=== PATIENT | female | born 1995 | race Caucasian/White ===

== ENCOUNTER 2020-11-11 16:43 | Day surgery (SDC) ==
[2020-11-11] MEDS ORDERED: hydrALAZINE 20 MG/ML VIAL SLOW IVP PRN ×2 (17:22→20:50)
[2020-11-11 19:27] LABS: Bacteria/HPF 4+ HPF (None Seen); Bilirubin Negative (Negative); Blood, Urine Trace (Negative); Clarity Turbid (Clear); Glucose, Urine (Dipstick) Normal (Negative); Ketone, Urine Negative (Negative); Leukocyte 500 Leu/uL (Negative); Nitrite Negative (Negative); Protein, Urine (Dipstick) Negative (Neg-Trace); Renal Epithelial 0-3 HPF (None Seen); Specific Gravity, Urine 1.012 (1.002-1.036); Squamous Epithelial 0-3 HPF (0-3); Urobilinogen Normal mg/dL (Less than 2); WBC/HPF Greater than 50 HPF (0-3)
[2020-11-11 19:36] LABS: Amphetamine Not Detected (NotDetected); Benzodiazepine Screen Not Detected (NotDetected); Cocaine Metabolite Screen Not Detected (NotDetected); Medtox Reader # READER 4; Methadone Not Detected (NotDetected); Methamphetamine Not Detected (NotDetected); Opiate Screen Not Detected (NotDetected); Phencyclidine (PCP) Not Detected (NotDetected); THC/Cannabinoid Screen Not Detected (NotDetected); Tricyclic Screen Not Detected (NotDetected)
[2020-11-11 19:37] LABS: Barbiturates Screen Not Detected (NotDetected); Medtox Control Line Valid? VALID (VALID); Oxycodone Screen Not Detected (NotDetected)
[2020-11-11 19:40] LABS: Hemoglobin 12.7 g/dL (12.0-16.0); Mean Corpuscular HGB CONC 33.9 g/dL (32.0-36.0); Mean Corpuscular Hemoglobin 32.6 pg (27.0-31.0); Mean Corpuscular Volume 96.2 fL (78.0-98.0); Mean Platelet Volume 8.5 fL (7.4-10.4); Platelet Count 259 thou/uL (130-400); RBC Distribution Width 11.6 % (11.5-14.5); White Blood Cell (WBC) Count 17.9 thou/uL (4.8-10.8)
[2020-11-11 20:17] LABS: Syphilis Antibody Nonreactive (Nonreactive); Syphilis Antibody Index 0.08 S/CO (<1.00 Non-Reactive)
--- NOTE | 2020-11-11 20:43 | ULT ---
OB ULTRASOUND: 11/11/20 PROVIDED CLINICAL HISTORY: No care. FINDINGS: A single live intrauterine gestation documented in vertex presentation with heart rate of 128 b eats per minute documented. The placenta is anteriorly located without evidence for previa. Amniotic fluid appears adequate, measuring about 17.6. Cervical length is not assessed. Estimated gestational age based on today's examination is 31 weeks, 3 days. Estimated weight is 1726 +/- 255 grams. F etal anatomic survey demonstrates a normal appearance to the spine, heart, stomach, kidneys, bladder, three vessel umbilical cord, lateral ventricles, cerebellum/posterior fossa, extremities and spine. The cord insertion and nose and lips were not visualized. BIOMETRY: BPD 7.93 cm 31 weeks, 6 days Head circumference 28.7 cm 31 weeks, 3 days Abdominal circumference 26.9 cm 31 weeks, 0 days Femur length 6.1 cm 31 weeks, 3 days IMPRESSION: Single live intrauterine gestation as described above. POS: DOM
[2020-11-11 23:08] LABS: HBSAB Concentration Less than 8.00 mIU/mL; Hep B Surf AB Non-Reactive (NonReactive)
--- NOTE | 2020-11-12 00:34 | PRG ---
DATE OF SERVICE: 11/11/2020 PRIMARY OB: None. CHIEF COMPLAINT: Side pain. HISTORY OF PRESENT ILLNESS: The patient is a 25-year-old G2, P1 female with an intrauterine based on reported due date by LMP of 28 weeks and 2 days, presenting to Labor and Delivery with a day history of side pain that she woke up with this morning. The patient points to her right side and states she has some point tenderness on her side, just above her hip bone that is worse with activity and movement. The patient does admit that she has had no care up to this point. The patient denies fever. The patient does report some minor cough. Denies chest pain. She does report some shortness of breath with activity and movement. Reports occasional nausea with vomiting. Denies diarrhea or constipation. Denies any new rashes. Denies hip problems, knee problems, muscle weakness. Denies vaginal bleeding or leakage of fluid. Denies urinary urgency or frequency. PAST MEDICAL HISTORY: The patient has a history of recurrent urinary tract infections. Also anxiety, depression, bipolar disorder, anemia. PAST SURGICAL HISTORY: Negative. ALLERGIES: NO KNOWN DRUG ALLERGIES. PAST OBSTETRIC HISTORY: The patient reports that she had elevated blood pressures with her last at term prompting an induction of labor. SOCIAL HISTORY: The patient does report tobacco use, 4 to 5 cigarettes a day. Occasional marijuana use. Denies alcohol use. REVIEW OF SYSTEMS: Per HPI. PHYSICAL EXAMINATION: VITAL SIGNS: Blood pressure 118/80, respiratory rate of 18, heart rate of 83, temperature 97.6. GENERAL: The patient appears to be in no acute distress. She is alert, oriented, cooperative, and pleasant to interact with. HEAD: Normocephalic, atraumatic. LUNGS: Clear to auscultation bilaterally . HEART: Has a regular rate and rhythm. ABDOMEN: Gravid, soft, nontender. She does have some point tenderness just above the right superior anterior iliac crest that is reproducible. The patient has no CVA tenderness. She has no pelvic tenderness. heart tracing shows a fetus with a baseline in the 130s with moderate long-term variability, positive 15 x 15 accelerations. Tocometer showing no contraction pattern. EXTREMITIES: Nontender with minimal edema. : Deferred. LABORATORY DATA: White count 17.9, hemoglobin 12.7, hematocrit 37.5, and platelets of 259,000. Urine is turbid with negative ketones, negative nitrites, 500 leukocyte esterase, 7 to 10 red blood cells, greater than 50 white blood cells, 0 to 3 squamous cells, 4+ bacteria. Negative drug screen. Nonreactive syphilis IgG/IgM antibody. Nonreactive hepatitis B surface standard antibody. Blood type is B positive, antibody screen is negative. ultrasound shows a fetus with a normal anatomic scan, weighing 1726 g approximately and a gestational age of 31 weeks and 3 days. ASSESSMENT AND PLAN: The patient is a 25-year-old G2, P1 female with an intrauterine at 28 weeks and 2 days, presenting with musculoskeletal pain of and no care. Initial labs are significant for urinary tract infection. Lab results were shared with the patient and the patient was prescribed Keflex 500 mg 3 times a day for 5 days. Urine culture is pending. GC and chlamydia are pending. COVID test is pending and rubella is pending. The patient has been provided with information to contact the clinic where she can establish care without insurance and there they can attempt to see if she can qualify for any public assistance. Fetus has a category 1 tracing and reactive NST. 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 Job ID: [id number]
[2020-11-12 03:08] LABS: SARS-CoV-2 MS2 Positive; SARS-CoV-2 N Gene Negative; SARS-CoV-2 S Gene Negative; SARS-CoV-2 by NAA Not Detected (NotDetected); SARS-CoV-2 orf1ab Negative
[2020-11-13 21:21] LABS: Chlamydia by PCR Not Detected (NotDetected); GC by PCR Not Detected (NotDetected)
== END 2020-11-11 19:30 | disposition home health service (06) ==
LOC: L&D/OP 16:43
PROVIDERS: ATTEND Obstetrics & Gynecology
DX: O26.893 Other specified pregnancy related conditions, third trimester (principal); R10.9 Unspecified abdominal pain; O23.43 Unspecified infection of urinary tract in pregnancy, third trimester; O09.33 Supervision of pregnancy with insufficient antenatal care, third trimester; O99.333 Smoking (tobacco) complicating pregnancy, third trimester; F17.210 Nicotine dependence, cigarettes, uncomplicated; Z3A.28 28 weeks gestation of pregnancy; Z20.828 Contact with and (suspected) exposure to other viral communicable diseases
CPT/HCPCS: 36415; 76805; 80306; 81001; 85027; 86706; 86762; 86780; 86850; 86900; 86901; 87077; 87086; 87186; 87491; 87591; 87635; 99283; U0003

== ENCOUNTER 2020-12-17 17:01 | Day surgery (SDC) | payer MEDICAID, OTHER, SELFPAY ==
[2020-12-17] MEDS ORDERED: Betamet Acet/Betamet Na Ph 30 MG/5 ML VIAL ONE (17:23)
== END 2020-12-17 17:30 | disposition home or self-care (01) ==
LOC: L&D/OP 17:01
PROVIDERS: ATTEND Student in an Organized Health Care Education/Training Program
DX: Z29.8 Encounter for other specified prophylactic measures (principal); Z3A.00 Weeks of gestation of pregnancy not specified
CPT/HCPCS: J0702

== ENCOUNTER 2020-12-18 17:41 | Day surgery (SDC) | payer MEDICAID, OTHER, SELFPAY ==
[2020-12-18] MEDS ORDERED: Betamet Acet/Betamet Na Ph 30 MG/5 ML VIAL ONE (18:19)
[2020-12-18] MEDS ORDERED: Betamet Acet/Betamet Na Ph 30 MG/5 ML VIAL IM SCH (18:30)
--- NOTE | 2020-12-18 18:37 | PDOC.FPROB ---
FMR OB H&P: HPI - History of Present Illness Chief Complaint: Steroid IM Indentification: 25 y/o @ 36.5 wga based on gestational sono @ 31.5 wga not c/w LMP History of Present Illness: 25-year-old -0-0-1 at 36.5 weeks by 31.3 weeks gestational age sono NOT consistent with LMP presents for 2/2 steroid injection per recommendation of MFM to have dose yesterday and today with plans for medically indicated induction tomorrow 2/2 IUGR. She has no complaints. No VB/LOF/contractions, endorses good mvmt. No RIDER, CP/SOB, RUQ pain, swelling more than normal. She states that today at clinic she had pap smear, GBS swab, and was told that she had a UTI, however denied urinary symptoms at this time. Was sent abx to the pharmacy which she has not picked up yet. Primary Care Physician: ANETA Morton FMR OB H&P: Current - Care : 2 Para: 1 Gestational age: 36.3 wga based on 31.3 gestational age sono not consistent with LMP - OB Labs Blood type: B RH: positive Antibody Screen: negative HIV: negative RPR: negative HepBsAg: negative Gonorrhea: negative Chlamydia: negative GBS: unknown FMR OB H&P: History - Past Medical History PMH: -obesity -tobacco abuse -MJ abuse - OB History OB History: Preg #1: vaginal delivery; was induced for pre-E, unsure if this was pre-term or term - CAMPUS COORDINATOR History CAMPUS COORDINATOR History: -partner with hepatitis B or C, unsure - Surgical History Sx History: -none - Social History Social History: -smokes 5-10 cig/day -off and on MJ use -no ETOH use - Family History Family History: -mother: DM FMR OB H&P: Medications - Current Home Medications: Medication Instructions Recorded Confirmed Type Sulfamethoxazole/Trimethoprim 1 tab PO BID #14 tab 11/11/20 Rx [Bactrim DS] Allergies/Adverse Reactions: Allergies Allergy/AdvReac Type Severity Reaction Status Date / Time No Known Drug Allergies Allergy Verified 12/17/20 17:56 FMR OB H&P: ROS - Review of Systems General: denies: fever/chills, night sweats, fatigue ENT: denies: nasal congestion, rhinorrhea, sore throat Cardiovascular: denies: chest pain, palpitation Respiratory: denies: cough, congestion, shortness of breath Gastrointestinal: denies: abdominal pain, indigestion, bloating, cramping, diarrhea, constipation Genitourinary (Female): denies: incontinence, dysuria, hematuria, vaginal discharge, vaginal pain, vaginal bleeding, contractions, vaginal pressure Musculoskeletal: denies: pain, stiffness, tenderness Neurologic: denies: weakness Integumentary: denies: itching, rash FMR OB H&P: Vital Signs - Maternal Vital signs: BP: 127/78, Temp 98.4, HR 91, RR 16 - Heart Tones Baseline: 130 Variability: moderate Acceleration: present Deceleration: absent [place] contractions every: none seen FMR OB H&P: Physical Exam - Physical Exam General: NAD, awake, alert and oriented HEENT: normocephalic and atraumatic, MMM, conjunctiva clear, grossly normal hearing Neck: supple Heart: RRR, normal S1/S2, no murmurs/rubs/gallops General: CTAB, no respiratory distress, good air movement, no rales/rhonchi, no wheezing Abdomen: soft, gravid Musculoskeletal: normal gait and station, pulses present, FROM in all four extremities Neurological: no focal deficit Skin: no rash, good tugor, capillary refill <2 seconds, no jaundice Lymphatic: no unusual bruising or bleeding, no purpura, no petechia Psychiatric: intact recent and remote memory, good judgement and insight, normal mood and affect FMR OB H&P: A/P Discussion: Date/Time: 12/18/201833 Assessment/Plan discussed with Dr. Mann and Dr. Simeon ##steroid injection for pending mIOL 2/2 IUGR -as recommended by [facility] will get 2/2 celestone injection today plan for induction tomorrow -will review u/s dopplers in clinic charts -covid test ordered -20 min NST before d/c ##Gestational HTN -home bps diastolic > 90, pre-e labs ordered in clinic. -will review labs and monitor BPs while in house, VSS at this time, no pre-E sxs today ##Hx of pre-E -was induced last for this -not currently on ASA -MD aware ##Hx of Marijuana use during -no known use during this , neg UDS in previous encounter -admits to current tobacco use, see below ##Smoking -currently 1/2 ppd, encourage cessation Dispo: awaiting NST prior to d/c Addendum: Pt had reactive NST 20 min strip. 12mg Celestone IM given. 1g rocephin given for ppx UTI. Dispo home. Induction scheduled for tomorrow. Addendum - Attending - Attending Attestation Date/Time: 12/18/201810 I personally evaluated the patient and discussed the management with resident team I agree with the History, Examination, Assessment and Plan documented above with any addition or exceptions noted below. NST reactive. BMZ #2 given. Will give Rocephin for UTI treatment. Ok for d/c. Justin
[2020-12-18] MEDS ORDERED: hydrALAZINE 20 MG/ML VIAL SLOW IVP PRN (18:42)
[2020-12-18] MEDS ORDERED: cefTRIAXone\\ROCEPHIN 1 GM VIAL IM SCH (19:00)
[2020-12-18] MEDS ORDERED: Lidocaine 1% PF 5 ML VIAL FS SCH (19:00)
[2020-12-19 06:45] LABS: SARS-CoV-2 PCR by NAA Not Detected (NotDetected)
== END 2020-12-18 19:20 | disposition home or self-care (01) ==
LOC: L&D/OP 17:41
PROVIDERS: ATTEND Student in an Organized Health Care Education/Training Program
DX: O36.5930 Maternal care for other known or suspected poor fetal growth, third trimester, not applicable or unspecified (principal); O99.333 Smoking (tobacco) complicating pregnancy, third trimester; F17.210 Nicotine dependence, cigarettes, uncomplicated; O13.3 Gestational [pregnancy-induced] hypertension without significant proteinuria, third trimester; O99.213 Obesity complicating pregnancy, third trimester; E66.9 Obesity, unspecified; O23.43 Unspecified infection of urinary tract in pregnancy, third trimester; Z3A.36 36 weeks gestation of pregnancy; Z20.822 Contact with and (suspected) exposure to COVID-19
CPT/HCPCS: 87635; 96372; 99282; J0696; J0702; U0003; U0005

== ENCOUNTER 2020-12-19 18:00 | Inpatient (IN) | payer MEDICAID, SELFPAY ==
[~2020-12-19 18:00] MED LIST: Bupivacaine HCl 0.25%/Epi 0.0005/PF 10 ML VIAL FS ONE
[2020-12-19 20:56] VITALS: BMI 34.3
[2020-12-19] MEDS ORDERED: Lidocaine 1% (PF) 30 ML VIAL SC PRN (21:13)
[2020-12-19] MEDS ORDERED: Promethazine HCl 25 MG/ML VIAL IM PRN (21:13)
[2020-12-19] MEDS ORDERED: NS / Oxytocin 40 units/1000ml 1,000 ML IV PRN (21:13)
[2020-12-19] MEDS ORDERED: Ondansetron PF 4 MG/2 ML Vial IVP PRN (21:13)
[2020-12-19] MEDS ORDERED: hydrALAZINE 20 MG/ML VIAL SLOW IVP PRN (21:13)
--- NOTE | 2020-12-19 21:13 | PDOC.FPROB ---
FMR OB H&P: HPI - History of Present Illness Chief Complaint: mIOL for IUGR Indentification: 25 y/o @ 36.6 wga History of Present Illness: Pt presents today for mIOL for IUGR. States that today she is feeling well. Endorses good FM. No consistent contractions felt. No VB, VD, or LOF. No RIDER, CP/SOB, N/V. States that she is bothered by her GERD today. Is not currently on medication for this. No questions at this time. Primary Care Physician: ANETA Morton FMR OB H&P: Current - Care : 2 Para: 1 Gestational age: 36.6 wga Dating Criteria: gestational 31.5 wk sono - OB Labs Blood type: B RH: positive Antibody Screen: negative HIV: negative RPR: negative HepBsAg: negative Rubella: immune Gonorrhea: negative Chlamydia: negative Pap Smear: done 12/18/20 unsure of results GBS: unknown FMR OB H&P: History - Past Medical History PMH: -obesity -tobacco abuse -MJ abuse - OB History OB History: -gHTN, pre-E in previous Preg #1: vaginal delivery; was induced for pre-E - RAND BUTTER History RAND BUTTER History: -hx of partner with hepatitis B or C, unsure of which type - Surgical History Sx History: -none - Social History Social History: -smokes 5-10 cig/day currently, used to smoke 2PPD earlier during , been smoking since 15 y.o -off and on MJ use -denies ETOH use - Family History Family History: Mother: DM FOB sibling with sickle cell FMR OB H&P: Medications - Current Home Medications: Medication Instructions Recorded Confirmed Type Vitamin 1 tablet PO DAILY 12/19/20 12/19/20 History Allergies/Adverse Reactions: Allergies Allergy/AdvReac Type Severity Reaction Status Date / Time latex Allergy Verified 12/19/20 20:40 No Known Drug Allergies Allergy Verified 12/19/20 20:40 FMR OB H&P: ROS - Review of Systems General: denies: fever/chills, fatigue Eyes: denies: eye pain, vision changes, double vision ENT: denies: nasal congestion, rhinorrhea, ear pain, sore throat Cardiovascular: denies: chest pain, palpitation Respiratory: denies: cough, congestion Gastrointestinal: reports: nausea. denies: abdominal pain, indigestion, bloating, cramping, diarrhea, constipation Genitourinary (Female): denies: incontinence, dysuria, polyuria, vaginal discharge, vaginal pain, vaginal bleeding, contractions, vaginal pressure Musculoskeletal: denies: pain, tenderness, swelling Neurologic: denies: numbness, weakness, headache Integumentary: denies: itching, rash FMR OB H&P: Vital Signs - Maternal Vital signs: Vital Signs - First Documented Temp Pulse Resp BP Pulse Ox 97.7 F 98 18 131/84 99 12/19/20 20:32 12/19/20 20:32 12/19/20 20:32 12/19/20 20:32 12/19/20 20:32 - Heart Tones Baseline: 130 Variability: minimal Acceleration: present Deceleration: absent Category: category 2 [place] contractions every: no ctx seen FMR OB H&P: Physical Exam - Physical Exam General: NAD, awake, alert and oriented HEENT: normocephalic and atraumatic, MMM, grossly normal hearing Neck: supple Chest: non-tender to palpation Heart: RRR, normal S1/S2, no murmurs/rubs/gallops, pulses present General: CTAB, no respiratory distress, good air movement, no rales/rhonchi, no wheezing, no retractions Abdomen: soft, gravid, non-tender, bowel sound present Musculoskeletal: FROM in all four extremities Neurological: no focal deficit Skin: no rash, good tugor, capillary refill <2 seconds Lymphatic: no unusual bruising or bleeding, no purpura, no petechia Psychiatric: intact recent and remote memory, good judgement and insight, normal mood and affect - Pelvic Exam Vulva: normal hair distribution, no lesions, no discharge, no blood Cervix: no masses, no lesions SVE: Membranes: intact FMR OB H&P: A/P Disposition: ##mIOL /2 IUGR -s/p two steroid IM 12/17 and 12/18 -seen by MFM who stated that fetus was IUGR, recent hadlock 9% and also noted elevated dopplers, prompting recommendation for mIOL -3T labs so far wnl -GBS unknown, will emperically txt -SVE: 2/25/-1 @ 21:19 -FHT: FHR 130s, accels noted, min-mod variability, no decels, cat 2 strip, no ctx seen -Still would like to decide on desire for epidural ##Gestational HTN -home bps diastolic > 90, pre-e labs ordered in clinic -VSS stable, SBP 130 -no pre-E sxs today ##Hx of pre-E -was induced last for this -not currently on ASA -MD aware ##Hx of Marijuana Use -states that she has used in this , neg UDS at clinic ##Tobacco Abuse Disorder -currently 1/2 ppd, hx of using up to 2 PPD during -cessation has been encouraged ##Hx of Ecoli UTI in [place], apparently was untreated ##Asymptomatic UTI -noted in clinic this week, was precribed abx, however did not yet pick these up from pharmacy yesterday 12/18, so was given IM rocephin while she was here for steroid IM Plan: Pt declined balloon placement. Will start pitocin. Monitoring strip closely. Discussion: Date/Time: 12/19/202112 This H&P was discussed with Dr. Mccabe and Dr. Simeon who agree with the above documentation and plan. Addendum - Attending - Attending Attestation Date/Time: 12/19/202258 I personally evaluated the patient and discussed the management with Dr. Joiner I agree with the History, Examination, Assessment and Plan documented above with any addition or exceptions noted below - 25 yo @36.6 weeks by 31.3 weeks admitted for medical induction due to IUGR with elevated umbilical dopplers. Patient established care last week and was noted to be S<D and sent to [facility] for growth USG. Found to have EFW<10% and elevated umbilical artery doppl ers. Recommended by [facility] to receive course of steroid which she did and then proceed with induction. Denies any complaints. Occ ctx, denies LOF, VB (+) FM. Afebrile VSS SVE 01/08/-1/post/soft per resident/nurse. FHTs 140s, minimal- mod variability, (+) accels, no decels. [place]- irritability A/P: 1) IUP @36.6 weeks with IUGR - [place]=5 - discussed with patient and significant other concerns over minimal variability with heart rate tracing and with this unable to use cytotec. Discussed option of balloon placement with pitocin. Risks/benefits discussed. Patient and significant other decline balloon placement and would prefer trial of pitocin alone. Discussed possibility of failure to induce as well as possible intolerance. Verbalized understanding. Will start pitocin.
[2020-12-19] MEDS ORDERED: Ibuprofen 800 MG TAB PO PRN (21:25)
[2020-12-19] MEDS ORDERED: Misoprostol 200 MCG TAB PR PRN (21:25)
[2020-12-19] MEDS ORDERED: Diphenoxylate HCl/Atropine Tablet PO PRN (21:25)
[2020-12-19] MEDS ORDERED: Methylergonovine 0.2 MG/ML VIAL IM PRN (21:25)
[2020-12-19] MEDS ORDERED: Carboprost 250 MCG/ML AMP IM PRN (21:25)
[2020-12-19] MEDS ORDERED: Penicillin G Potassium 5 MILL.UNITS in Sodium Chloride 0.9% 100 ML IVPB SCH (21:30)
[2020-12-19] MEDS: Famotidine 20 MG TAB PO SCH (21:55)
[2020-12-19] MEDS: Calcium Carbonate 500 MG ChewTAB PO PRN (21:55)
[2020-12-19] MEDS: Lactated Ringer's 1,000 ML IV SCH (21:57)
[2020-12-19 22:23] LABS: Mean Corpuscular HGB CONC 33.8 g/dL (32.0-36.0); Mean Corpuscular Hemoglobin 32.4 pg (27.0-31.0); Mean Corpuscular Volume 95.9 fL (78.0-98.0); Mean Platelet Volume 8.8 fL (7.4-10.4); Platelet Count 261 thou/uL (130-400); RBC Distribution Width 12.5 % (11.5-14.5); White Blood Cell (WBC) Count 26.1 thou/uL (4.8-10.8)
[2020-12-19 23:00] LABS: HBSAg Index 0.16 S/CO (0-0.99); Hep B Surf Ag Non-Reactive S/CO (NonReactive); Syphilis Antibody Nonreactive (Nonreactive); Syphilis Antibody Index 0.08 S/CO (<1.00 Non-Reactive)
[2020-12-19] MEDS: NS w/ Oxytocin 30 units 500 ML IVPB SCH (23:07)
--- NOTE | 2020-12-20 02:07 | PDOC.BPN ---
- Brief Progress Note Encounter Date: 12/20/20 Encounter Time: 02:07
--- NOTE | 2020-12-20 02:10 | PDOC.LDPN ---
Labor & Delivery Progress Note - Subjective Subjective: comfortable - Objective Vital signs reviewed and normal: yes General: NAD SVE: 2.5/50/-1 @ 1:57 FHT: category 2 Plan: continue plan of care -: SVE 2.5/50/-1 VSS: BP 139/87 HR 88 FHT: FHR 130s, min-mod variability noted, no decels, ctx hard to visualize Pit has been started, continue, check in 3 hours Plan discussed with Dr. Mccabe and Dr. Simeon who agreed to plan.
[2020-12-20] MEDS: Lactated Ringer's 1,000 ML IV SCH ×2 (02:16→14:11)
[2020-12-20] MEDS: Penicillin G 2.5 MILL.units 2.5 MILL.UNITS in Premix Bag 1 BAG IVPB SCH ×4 (02:16→14:10)
--- NOTE | 2020-12-20 04:43 | PDOC.LDPN ---
Labor & Delivery Progress Note - Subjective Subjective: comfortable - Objective Vital signs reviewed and normal: yes General: NAD SVE: /-1 FHT: category 2 -: SVE /- @ 3:46, pit continued VSS reviwed FHT: category 2 strip Plan: continue current plan
--- NOTE | 2020-12-20 08:19 | PDOC.LDPN ---
Labor & Delivery Progress Note - Subjective Subjective: vaginal pressure - Objective Vital signs reviewed and normal: yes General: breathing through contractions SVE: 4/50/-2 @0750 FHT: category 2 [place] contractions every: q3-4 min -: A/P: 1) IUP@ 37.0 weeks undergoing induction for IUGR with abnormal dopplers - no change since last exam. FHTs -130s/minimal to absent variability; (+) accel/scalp stim with exam. Continue to monitor closely. Situation discussed with patient.
[2020-12-20] MEDS: Famotidine 20 MG TAB PO SCH ×2 (10:17→22:31)
[2020-12-20] MEDS: Calcium Carbonate 500 MG ChewTAB PO PRN (12:22)
--- NOTE | 2020-12-20 12:24 | PDOC.LDPN ---
Labor & Delivery Progress Note - Subjective Subjective: painful contractions - Objective Vital signs reviewed and normal: yes General: breathing through contractions Dilation: 4 Effacement: 50% Station: -1 FHT: category 2, variability present (minimal) [place] contractions every: 2-3 min AROM: clear fluid Resuscitative measures: maternal position change Plan: continue plan of care, pitocin for augmentation (pit at 14) -: after AROM /-1. recheck in 2 hours.
[2020-12-20] MEDS ORDERED: Fentanyl 4 mcg/Bup 0.1% Cadd 100 ML ONE (14:05)
[2020-12-20] MEDS ORDERED: Acetaminophen 325 MG TAB PO PRN (15:20)
[2020-12-20] MEDS ORDERED: ePHEDrine 50 MG/ML VIAL SLOW IVP PRN (15:20)
[2020-12-20] MEDS ORDERED: Naloxone HCl 0.4 mg/ml Vial IVP PRN ×2 (15:20)
[2020-12-20] MEDS ORDERED: Promethazine HCl 25 MG/ML VIAL IM PRN (15:20)
[2020-12-20] MEDS ORDERED: Ondansetron PF 4 MG/2 ML Vial IVP PRN (15:20)
[2020-12-20] MEDS ORDERED: diphenhydrAMINE 50 MG/ML VIAL IVP PRN (15:20)
[2020-12-20] MEDS ORDERED: Lactated Ringer's 500 ML IV PRN (15:20)
--- NOTE | 2020-12-20 15:24 | PDOC.LDPN ---
Labor & Delivery Progress Note - Subjective Subjective: comfortable, painful contractions, other (Epidural just placed, pain improved) - Objective Vital signs reviewed and normal: yes General: NAD, breathing through contractions SVE: FHT: category 2 [facility] contractions every: q3min Plan: continue plan of care, labor augmentation -: -Cat 2 strip for minimal variability - @ 1515 -epidural in place, pt is more comfortable
[2020-12-20] MEDS ORDERED: Fentanyl 4 mcg/Bupivacaine 0.1% Cassette 100 ML EPIDURAL SCH (15:30)
[2020-12-20] MEDS ORDERED: Communication Order-Pharmacy FS SCH (15:30)
[2020-12-20] MEDS: NS w/ Oxytocin 30 units 500 ML IVPB SCH (15:40)
--- NOTE | 2020-12-20 16:27 | PDOC.OPDEL ---
OB Operative/Delivery Note Delivery Dr/Surgeon: Ashlie/Estelle Pre-Delivery Diagnosis: medically indicated induction Procedure/Post Delivery Dx: spontaneous vaginal delivery Weeks gestation: 37 Anesthesia: epidural - Additional Findings/Plan Compilations/Other Findings: Delivering Physician: Ashlie Attending: Estelle Procedure: Spontaneous Vaginal Delivery Anesthesia: epidural QBL: 65 Pre-op Diagnosis: 1. Term intrauterine , medically indicated IOL 2. IUGR 3. Hx of PreE 4. Tobacco and Marijuana Use 5. gHTN Post-op Diagnosis: 1. Term intrauterine , delivered 2. same as above Indications: A 25 y/o female presents to L&D for induction due to IUGR Delivery Note: This is 25 y/o female @ 37wks who delivered a viable M infant at 1540. Following an uneventful antepartum course, a vigorous M was delivered over an intact perineum in the OA position. Anterior Shoulder and then remainder of the body delivered. No nuchal cord. The head was held down and mouth and nares were bulb suctioned. Cord clamped and cut and cord blood collected. Placenta delivered intact in the [place] orientation with a 3 vessel cord noted. Fundal massage was performed and the fundus was firm. The cervix and vagina were inspected and hemostatic periurethral laceration was noted. went to nursery in good condition for routine care. Apgars were 7/9 at 1 & 5 minutes, respectively. Patient tolerated delivery well and went to after routine recovery/care. : patient still bleeding so clots expressed. Fundus firm. Inside of uterus swept for clots. 800 cytotec MT placed PP QBL: 195 Addendum - Attending - Attending Attestation Date/Time: 12/21/20 1429 I was present and supervised the of a viable male infant over an intact perineum to this 25 yo @37 weeks induced for IUGR. Apgars 7/9. Shoulders and body delivered easily. Placenta delivered spontaneously and intact . 3V cord. No epis/lac. QBL 195mL. Infant and mother in stable condition. Residents: Ashlie.
[2020-12-20] MEDS ORDERED: Methylergonovine 0.2 MG/ML VIAL ONE (17:47)
[2020-12-20] MEDS ORDERED: Carboprost 250 MCG/ML AMP ONE (17:50)
[2020-12-20] MEDS ORDERED: Diphenoxylate HCl/Atropine Tablet PO PRN (18:15)
[2020-12-20] MEDS ORDERED: Promethazine HCl 12.5 MG in Sodium Chloride 0.9% 50 ML IVPB PRN (20:55)
[2020-12-20] MEDS: Famotidine/PF 20 mg/2ml Vial SLOW IVP SCH (21:08)
[2020-12-21] MEDS ORDERED: Preparation H Ointment 28 GM TUBE PR PRN (05:17)
[2020-12-21] MEDS ORDERED: Milk Of Magnesia 30 ML UDCUP PO PRN (05:17)
[2020-12-21] MEDS ORDERED: Bisacodyl 10 MG SUPP PR PRN (05:17)
[2020-12-21] MEDS ORDERED: diphenhydrAMINE 25 MG CAP PO PRN (05:17)
[2020-12-21] MEDS ORDERED: hydrALAZINE 20 MG/ML VIAL SLOW IVP PRN (05:17)
[2020-12-21] MEDS ORDERED: Lanolin Ointment 7 GM TUBE TOP PRN (05:17)
[2020-12-21] MEDS ORDERED: Benzocaine-Menthol 82.5 ML CAN TOP PRN (05:18)
--- NOTE | 2020-12-21 05:24 | PDOC.PP ---
Post Progress Note Post Day #: 1 Subjective: Pt tolerating PO, voided, stooled, ambulated. Lochia minimal. Pain well controlled. Vital Signs (12 hours) Temp Pulse Resp BP 12/21/20 01:47 98.6 F 70 14 143/83 H 12/20/20 18:39 98 Weight Weight 90.718 kg - Physical Examination General: NAD Cardiovascular: no m/r/g, RRR Respiratory: clear to auscultation bilaterally, non-labored breathing Abdominal: lochia (minimal), no distention, appropriately TTP Fundus firm & at: below umbilicus Extremities: negative homans (B) Deviation from normal: 1+ pitting edema BLE Neurological: no gross focal deficits Psychiatric: A&Ox3, normal affect Result Diagrams: 12/21/20 10:55 12/21/20 10:55 Additional Labs: Post Labs Hep Bs Antigen Non-Reactive S/CO (NonReactive) 12/19/20 22:05 Blood Type B POSITIVE 12/19/20 22:05 - Assessment/Plan PPD #1: 25 yo G2 now P2002 delivered via @ 37.0 WGA by 31.3 wk sono; mIOL 2/2 IUGR and elevated dopplers PPD#1 -MFM: IUGR, recent hadlock 9% and also noted elevated dopplers, prompting recommendation for mIOL; s/p celestone IM 2/3 and 2/4, infant SGA -Mother ambulating, voiding, stooled -, consulted for assistance with latch -desires circumcision Late to Care -CM consulted -Nursing has noted some concerns with FOB behavior GBS unknown - treated x5 Gestational HTN, hx of PreE -VSS -pre-e precautions Hx of Marijuana Use -Neg UDS in 3T Tobacco Abuse Disorder -currently 1/2 ppd, hx of using up to 2 PPD during -cessation has been encouraged Dispo: Continue monitoring today, likely DC to home tomorrow pending clinical course. CM and consulted. Addendum - Attending - Attending Attestation Date/Time: 12/21/20 5769 I personally evaluated the patient and discussed the management with Dr. Morton I agree with the History, Examination, Assessment and Plan documented above with any addition or exceptions noted below - Patient without complaints. Ambulating/voiding. Afebrile VSS. A/P: 1) PPD#1 s/p - continue routine p ostpartum care. 2) Gestational HTN- One elevated BP over night; will check pre- eclampsia labs.
[2020-12-21] MEDS ORDERED: NS / Oxytocin 40 units/1000ml 1,000 ML IV SCH (05:30)
[2020-12-21] MEDS: Famotidine 20 MG TAB PO SCH ×2 (08:23→20:47)
[2020-12-21] MEDS: Docusate Calcium (SURFAK) 240 MG CAP PO SCH ×3 (08:24→20:47)
[2020-12-21] MEDS ORDERED: Adacel (T-DAP) 0.5 ML SYRINGE IM ONE (09:00)
[2020-12-21] MEDS ORDERED: Prenatal Vitamin 1 TAB PO SCH (09:00)
[2020-12-21] MEDS: Famotidine/PF 20 mg/2ml Vial SLOW IVP SCH (10:15)
[2020-12-21] MEDS: Lactated Ringer's 1,000 ML IV SCH ×3 (10:15→20:43)
[2020-12-21 11:02] LABS: #Eosinphils 0.1 thou/uL (0.0-0.7); #Lymphocytes 2.3 thou/uL (1.20-3.40); #Monocytes 1.4 thou/uL (0.11-0.59); #Neutrophils 14.6 thou/uL (1.40-6.50); %Basophils 0.3 % (0.0-1.0); %Eosinophils 0.5 % (0.0-10.0); %Lymphocytes 12.3 % (21.0-51.0); %Monocytes 7.7 % (0.0-10.0); %Neutrophils 79.3 % (42.0-75.0); Hemoglobin 11.3 g/dL (12.0-16.0); Mean Corpuscular HGB CONC 33.7 g/dL (32.0-36.0); Mean Corpuscular Hemoglobin 32.2 pg (27.0-31.0); Mean Corpuscular Volume 95.7 fL (78.0-98.0); Platelet Count 224 thou/uL (130-400); RBC Distribution Width 12.7 % (11.5-14.5); White Blood Cell (WBC) Count 18.4 thou/uL (4.8-10.8)
[2020-12-21 11:04] LABS: Creatinine, Urine 32.27 mg/dL (47-110); Protein, Urine Random Quant Less than 10 mg/dL (1-14)
[2020-12-21 11:22] LABS: ALT (SGPT) 10 U/L (8-55); AST (SGOT) 17 U/L (5-34); Albumin 2.8 g/dL (3.5-5.0); Alkaline Phosphatase 106 U/L (40-110); Anion Gap 11 mmol/L (10-20); BUN (Urea Nitrogen) 8 mg/dL (7.0-18.7); Bilirubin, Total 0.3 mg/dL (0.2-1.2); Calc. Creatinine Clearance 187 mL/min (70-130); Calcium 8.5 mg/dL (7.8-10.44); Carbon Dioxide 24 mmol/L (22-29); Chloride 106 mmol/L (98-107); Globulin 2.9 g/dL (2.4-3.5); Glucose 111 mg/dL (70-105); Potassium 3.3 mmol/L (3.5-5.1); Protein, Total 5.7 g/dL (6.0-8.3); Sodium 138 mmol/L (136-145)
[2020-12-21] MEDS: Penicillin G 2.5 MILL.units 2.5 MILL.UNITS in Premix Bag 1 BAG IVPB SCH (19:17)
[2020-12-22] MEDS: Lactated Ringer's 1,000 ML IV SCH (03:51)
--- NOTE | 2020-12-22 07:07 | PDOC.PP ---
Post Progress Note Post Day #: 2 Subjective: Tolerating PO Pain well controlled Has voided and stooled Denies chest pain, headache, SOB, upper abdominal pain Breast feeding is going better PO intake tolerated: yes Flatus: yes Ambulation: yes Vital Signs (12 hours) Temp Pulse Resp BP Pulse Ox 12/21/20 19:57 98.2 F 88 18 117/66 95 Weight Weight 90.718 kg - Physical Examination General: NAD Cardiovascular: no m/r/g, RRR Respiratory: clear to auscultation bilaterally, non-labored breathing Abdominal: + bowel sounds, lochia (minimal), no distention, appropriately TTP Extremities: negative homans (B) Neurological: no gross focal deficits Psychiatric: A&Ox3, normal affect Result Diagrams: 12/21/20 10:55 12/21/20 10:55 Additional Labs: Post Labs Hep Bs Antigen Non-Reactive S/CO (NonReactive) 12/19/20 22:05 Blood Type B POSITIVE 12/19/20 22:05 - Assessment/Plan PPD #2: 25 yo G2 now P2002 delivered via @ 37.0 WGA by 31.3 wk sono on 12/20/20 @ 1540; mIOL 2/2 IUGR and elevated dopplers PPD#1 -MFM: IUGR, recent hadlock 9% and also noted elevated dopplers, prompting recommendation for mIOL; s/p celestone IM 2/3 and 2/4, infant SGA -Mother ambulating, voiding, stooled - is going much better -desires circumcision, will plan for this outpatient due to infants small size -CM consulted -Plan for DC to home today Late to Care -CM consulted, plans to contact CPS GBS unknown - treated x5 Gestational HTN, hx of PreE -pre-E work up negative. BP stable overnight -pre-e precautions Hx of Marijuana Use -Neg UDS in 3T Tobacco Abuse Disorder -currently 1/2 ppd, hx of using up to 2 PPD during -cessation has been encouraged Dispo: Plan to DC to home today, follow up in 2-3 days (same day as ) with blood pressures. Discussed Pre-E precautions. Addendum - Attending - Attending Attestation Date/Time: 12/22/20 0942 I personally evaluated the patient and discussed the management with Dr. Amadeo Morton I agree with the History, Examination, Assessment and Plan documented above with any addition or exceptions noted below - Patient without complaints. Afebrile VSS. A/P: 1) PPD#2 s/p - plan to d/c home once cleared by CM/CPS.
[2020-12-22] MEDS ORDERED: Ibuprofen 800 MG TAB PO SCH (07:15)
[2020-12-22] MEDS ORDERED: Ibuprofen 600 MG TAB PO SCH (08:00)
[2020-12-22 08:22] VITALS: BP 114/67; TEMP 98.4
== END 2020-12-22 13:25 | disposition home or self-care (01) | DRG 806 ==
LOC: L&D 19:58 → 3SW 12-21 00:50
PROVIDERS: ADMIT Family Medicine; ATTEND Family Medicine
PROC: 3E033VJ Introduction of Other Hormone into Peripheral Vein, Percutaneous Approach (ICD-10-PCS; 2020-12-19)
PROC: 10E0XZZ Delivery of Products of Conception, External Approach (ICD-10-PCS; principal; 2020-12-20)
PROC: 10907ZC Drainage of Amniotic Fluid, Therapeutic from Products of Conception, Via Natural or Artificial Opening (ICD-10-PCS; 2020-12-20)
DX: O36.5930 Maternal care for other known or suspected poor fetal growth, third trimester, not applicable or unspecified (principal); O99.324 Drug use complicating childbirth; O23.43 Unspecified infection of urinary tract in pregnancy, third trimester; Z3A.36 36 weeks gestation of pregnancy; Z37.0 Single live birth; Z20.822 Contact with and (suspected) exposure to COVID-19; O99.214 Obesity complicating childbirth; E66.9 Obesity, unspecified; O99.334 Smoking (tobacco) complicating childbirth; F17.200 Nicotine dependence, unspecified, uncomplicated; F12.10 Cannabis abuse, uncomplicated; O13.4 Gestational [pregnancy-induced] hypertension without significant proteinuria, complicating childbirth; O71.82 Other specified trauma to perineum and vulva; Z91.040 Latex allergy status
CPT/HCPCS: 36415; 51702; 80053; 82570; 84156; 85025; 85027; 86780; 86850; 86900; 86901; 87340; 88307; J0360; J2210; J2405; J2540; J2550; J2590; J3490; S0028